=== PATIENT | female | born 1980 | race Caucasian/White ===

== ENCOUNTER 2019-05-22 20:44 | Emergency (ER) | payer MEDICAID ==
[~2019-05-22] VITALS: Ht 162.6 cm; Wt 84.8 kg
[2019-05-22 21:10] VITALS: Ht 162.6 cm; Wt 84.8 kg
[2019-05-22 22:51] VITALS: BP 127/87
== END 2019-05-22 21:10 | disposition home or self-care (01) ==
LOC: ED 20:44
DX: S62.603A Fracture of unspecified phalanx of left middle finger, initial encounter for closed fracture (principal); W18.30XA Fall on same level, unspecified, initial encounter; Y93.89 Activity, other specified; Y92.89 Other specified places as the place of occurrence of the external cause; Y99.8 Other external cause status